=== PATIENT | male | born 1935 | race Caucasian/White ===

== ENCOUNTER 2018-12-04 16:56 | Inpatient (IN) ==
[2018-12-04] MEDS ORDERED: NON-FORMULARY MEDICATION 1 EACH EACH (Nitroglycerin [Nitrostat] 0.4 MG) SL PRN (19:00)
[2018-12-04] MEDS: Levofloxacin 500 MG/100 ML 500 MG/100 ML BAG IVPB SCH (19:07)
[2018-12-04] MEDS ORDERED: Furosemide 40 MG TABLET PO SCH (19:15)
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
[2018-12-04] MEDS: 0.9 % Sodium Chloride 1,000 ML IVC SCH ×2 (20:00→23:10)
[2018-12-04 20:03] LABS: Hematocrit 32.4 % (37.5-50.1); Hemoglobin 10.7 g/dL (12.9-16.9); Mean Corpuscular Hemoglobin 30.9 pg (28.0-33.3); Mean Corpuscular Volume 93.6 fL (83.0-100.0); Mean Platelet Volume 9.9 fL (9.4-12.4); Platelet Count 160 K/mcL (140-400); Red Blood Count 3.46 M/mcL (4.19-5.50)
[2018-12-04 20:20] LABS: BUN/Creatinine Ratio 16 (6-26); Blood Urea Nitrogen 21 mg/dL (8-23); Carbon Dioxide 27 mEq/L (23-29); Chloride 100 mEq/L (98-107); Glucose 97 mg/dL (70-105); Osmolality,Calculated 283 (280-300); Potassium 4.1 mEq/L (3.5-5.1); Sodium 135 mEq/L (136-145); eGFR For Non-African Americans 51 (> 60)
[2018-12-04] MEDS ORDERED: Isosorbide MONOnitrate (24 HR) 60 MG TAB.ER.24H PO SCH (21:00)
[2018-12-04] MEDS: Isosorbide MONOnitrate (24 HR) 60 MG TAB.ER.24H PO SCH (22:57)
[2018-12-04] MEDS: Ranolazine 500 MG TAB.ER.12H PO SCH (22:57)
[2018-12-04] MEDS: *HR* Metformin 500 MG TABLET PO SCH (22:57)
[2018-12-04] MEDS: Benzonatate 100 MG CAPSULE PO PRN (22:58)
[2018-12-05] MEDS: Nitroglycerin 0.4 MG TAB.SUBL SL PRN ×4 (02:35→17:36)
[2018-12-05] MEDS: *HR* HYDROcodone/Acet 5/325 mg TABLET PO PRN ×4 (02:35→22:12)
[2018-12-05 03:31] LABS: Basophils % 0.3 %; Eosinophils # 0.2 K/mcL (0.0-0.6); Eosinophils % 2.5 %; Hematocrit 30.3 % (37.5-50.1); Immature Granulocytes % 0.1 % (0-4); Lymphocytes # 1.3 K/mcL (0.6-4.6); Lymphocytes % 17.8 %; Mean Corpuscular Hemoglobin 30.6 pg (28.0-33.3); Mean Corpuscular Volume 92.7 fL (83.0-100.0); Mean Platelet Volume 9.7 fL (9.4-12.4); Neutrophils # 4.6 K/mcL (1.6-8.9); Platelet Count 164 K/mcL (140-400); Red Blood Count 3.27 M/mcL (4.19-5.50); Red Cell Distribution Width 12.9 % (11.5-14.5); Segmented Neutrophils % 65.3 %
[2018-12-05 03:47] LABS: BUN/Creatinine Ratio 16 (6-26); Blood Urea Nitrogen 20 mg/dL (8-23); Calcium 9.7 mg/dL (8.6-10.3); Carbon Dioxide 27 mEq/L (23-29); Chloride 100 mEq/L (98-107); Glucose 142 mg/dL (70-105); Osmolality,Calculated 281 (280-300); Potassium 3.8 mEq/L (3.5-5.1); Sodium 133 mEq/L (136-145); eGFR For Non-African Americans 54 (> 60)
[2018-12-05] MEDS: *HR* Enoxaparin 40 MG/0.4 ML SYRINGE SQ SCH (05:26)
[2018-12-05] MEDS: Benzonatate 100 MG CAPSULE PO PRN ×3 (08:38→22:12)
[2018-12-05] MEDS: Isosorbide MONOnitrate (24 HR) 60 MG TAB.ER.24H PO SCH ×2 (08:39→22:13)
[2018-12-05] MEDS: Ranolazine 500 MG TAB.ER.12H PO SCH ×2 (08:39→22:13)
[2018-12-05] MEDS: *HR* Metformin 500 MG TABLET PO SCH ×2 (08:39→15:22)
[2018-12-05] MEDS: Furosemide 40 MG TABLET PO SCH (08:40)
[2018-12-05] MEDS: Aspirin 81 MG TAB.CHEW PO SCH (08:40)
[2018-12-05] MEDS ORDERED: AZITHROMYCIN 250 MG PO SCH (09:00)
--- NOTE | 2018-12-05 09:27 | Electrocardiograph Report ---
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
--- NOTE | 2018-12-05 10:06 | Internal Med Progress Note ---
Date of Encounter: 12/05/18 Time of Encounter: 10:06 - Assessment and plan (1) Right lower lobe pneumonia Current Visit: Yes Status: Acute Assessment and plan: Patient has documented pneumonia, no fever or leukocytosis currently. It is giving him left-sided chest pain though. Having failed outpatient treatment with Zithromax and prednisone, he has been placed on Levaquin. No significant sputum. By auscultation he sounds better today. No significant hypoxia Qualifiers: Pneumonia type: due to unspecified organism Qualified Code(s): J18.1 - Lobar pneumonia, unspecified organism (2) Physical debility Current Visit: Yes Status: Acute Assessment and plan: Generalized weakness. He has mainly stayed in bed. (3) Acute kidney injury Current Visit: Yes Status: Acute Assessment and plan: Creatinine is better at 1.28 and will continue IV fluids. (4) Chest pain Current Visit: Yes Status: Acute Assessment and plan: Known history of CAD and angina, at this left-sided chest pain is very likely pulmonary/chest wall related. EKG is stable. Troponins negative. We will treat with symptomatic relief with analgesia. Nitroglycerin if needed to see if this is of help Qualifiers: Chest pain type: precordial pain Qualified Code(s): R07.2 - Precordial pain (5) Diabetes mellitus Current Visit: Yes Status: Chronic Assessment and plan: Generally under good control and we will continue to monitor. Qualifiers: Diabetes mellitus type: type 2 Diabetes mellitus group home insulin use: unspecified group home insulin use status Diabetes mellitus complication sta tus: with unspecified complications Qualified Code(s): E11.8 - Type 2 diabetes mellitus with unspecified complications (6) Coronary artery disease Current Visit: Yes Status: Chronic Assessment and plan: No obvious angina, on monitor and ruled out with troponin. No congestive heart failure. Qualifiers: Coronary Disease-Associated Artery/Lesion type: bypass graft [place] vs. transplanted heart: [place] heart Associated angina: with unspecified angina Qualified Code(s): I25.709 - Atherosclerosis of coronary artery bypass graft(s), unspecified, with unspecified angina pectoris (7) Hypertension Current Visit: Yes Status: Chronic Assessment and plan: Blood pressure under reasonable control Qualifiers: Hypertension type: essential hypertension Qualified Code(s): I10 - Essential (primary) hypertension (8) DVT prophylaxis Current Visit: Yes Status: Acute - Subjective Interval history: Patient did not get much rest last night. He coughed a lot of the time. He thinks he is a bit better, but not much today. Did not want the breakfast as it was cold. He denies a cardiac type chest pain, but he complains of left-sided chest pain particularly when he coughs. No severe get sputum production. No dyspnea. No abdominal pain. In the night last night he had chest pain and they got an EKG which did not show acute changes. Serial troponins were initiated and he was placed on quality assurance monitor body. At first they thought he was in atrial fibrillation, but EKGs and monitoring reveal first-degree heart block with occasional PAC - Constitutional Vitals: Temp Pulse Resp BP Pulse Ox 98.7 F 63 16 138/70 95 12/05/18 07:10 12/05/18 07:10 12/05/18 07:10 12/05/18 07:10 12/05/18 07:10 General appearance: Present: mild distress, A&O X 3, loss of weight, answers questions appropriately - Respiratory Respiratory exam: Present: decreased breath sounds (A few rare crackles heard, improved from yesterday. Crackles heard in the left anterior lobe area.) - Cardiovascular Cardiovascular exam: Present: RRR, +S1, +S2. Absent: systolic murmur - Extremities Exam Extremities exam: Absent: calf tenderness, pedal edema, tenderness Internal Medicine: Result - Labs CBC & Chem 7: 12/05/18 03:25 12/05/18 03:25 Labs: Short CBC 12/04/18 12/05/18 Range/Units 20:00 03:25 WBC 7.3 7.1 (4.3-11.1) K/mcL Hgb 10.7 L 10.0 L (12.9-16.9) g/dL Hct 32.4 L 30.3 L (37.5-50.1) % Plt Count 160 164 (140-400) K/mcL Neutrophils # 4.6 (1.6-8.9) K/mcL BMP 12/04/18 12/05/18 20:00 03:25 Sodium 135 L 133 L Potassium 4.1 3.8 Chloride 100 100 Carbon Dioxide 27 27 BUN 21 20 Creatinine 1.33 H 1.28 Glucose 97 142 H Calcium 10.0 9.7 Cardiac Enzymes 12/05/18 12/05/18 Range/Units 03:25 09:16 Troponin I 0.03 0.03 (< 0.04) ng/mL Have been reviewed. Creatinine slightly better. Sodium slightly worse. Troponin negative EKG reviewed as above. Consult Discharge Plan - Plan Referrals: Wesley Haas MD [Primary Care Provider] -
[2018-12-05] MEDS: 0.9 % Sodium Chloride 1,000 ML IVC SCH (12:15)
--- NOTE | 2018-12-05 17:38 | Electrocardiograph Report ---
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
[2018-12-05] MEDS ORDERED: Nitroglycerin 1 INCH/GM PACKET TP ONE (18:02)
[2018-12-05] MEDS: Levofloxacin 500 MG/100 ML 500 MG/100 ML BAG IVPB SCH (18:04)
[2018-12-05] MEDS: Promethazine Syrup 6.25 MG/5 ML PO PRN (23:50)
[2018-12-06] MEDS: 0.9 % Sodium Chloride 1,000 ML IVC SCH ×2 (02:46→16:11)
[2018-12-06] MEDS: Promethazine Syrup 6.25 MG/5 ML PO PRN ×4 (06:03→21:26)
[2018-12-06] MEDS: *HR* HYDROcodone/Acet 5/325 mg TABLET PO PRN ×4 (06:05→21:26)
[2018-12-06] MEDS: *HR* Enoxaparin 40 MG/0.4 ML SYRINGE SQ SCH (06:08)
[2018-12-06] MEDS: *HR* Metformin 500 MG TABLET PO SCH ×2 (08:56→17:49)
[2018-12-06] MEDS: Isosorbide MONOnitrate (24 HR) 60 MG TAB.ER.24H PO SCH ×2 (08:56→21:22)
[2018-12-06] MEDS: Aspirin 81 MG TAB.CHEW PO SCH (08:56)
[2018-12-06] MEDS: Ranolazine 500 MG TAB.ER.12H PO SCH ×2 (08:56→21:23)
[2018-12-06] MEDS: Furosemide 40 MG TABLET PO SCH (08:56)
[2018-12-06] MEDS: Benzonatate 100 MG CAPSULE PO PRN (09:11)
--- NOTE | 2018-12-06 09:54 | Internal Med Progress Note ---
Date of Encounter: 12/06/18 Time of Encounter: 09:54 - Assessment and plan (1) Right lower lobe pneumonia Current Visit: Yes Status: Acute Assessment and plan: He thinks his cough is better. No acute respiratory distress. He feels like his pneumonia is improving. No fevers or chills. CT scan scheduled for chest pain as below. He is still not eating well. He is not getting out of the bed much or increasing his ADLs because of weakness Qualifiers: Pneumonia type: due to unspecified organism Qualified Code(s): J18.1 - Lobar pneumonia, unspecified organism (2) Physical debility Current Visit: Yes Status: Acute Assessment and plan: He continues to be weak and not getting out of bed much because of his cough and his chest pain. He is also not eating well yet. I encouraged him to try to increase his activity and sit up in a chair. (3) Acute kidney injury Current Visit: Yes Status: Acute Assessment and plan: Follow-up labs ordered. Continue IV fluids as he has had poor oral intake. (4) Chest pain Current Visit: Yes Status: Acute Assessment and plan: Left-sided chest pain particularly over the left nipple. This appears to be related to his coughing. Does not sound cardiac. EKGs and troponins are reassuring. CT scan to be arranged to rule out other occult etiology besides pleuritic type pain related to pneumonia. Qualifiers: Chest pain type: precordial pain Qualified Code(s): R07.2 - Precordial pain (5) Diabetes mellitus Current Visit: Yes Status: Chronic Assessment and plan: Blood sugars are under relatively good control and followed well. 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 Qualifiers: Coronary Disease-Associated Artery/Lesion type: bypass graft [place] vs. transplanted heart: [place] heart Associated angina: with unspecified angina Qualified Code(s): I25.709 - Atherosclerosis of coronary artery bypass graft(s), unspecified, with unspecified angina pectoris (7) Hypertension Current Visit: Yes Status: Chronic Assessment and plan: Blood pressure minimally elevated today. We will continue to follow. Qualifiers: Hypertension type: essential hypertension Qualified Code(s): I10 - Essential (primary) hypertension (8) DVT prophylaxis Current Visit: Yes Status: Acute - Subjective Interval history: He thinks he rested a bit better last night, getting a couple hours of sleep. Yesterday he had intermittent episodes of left-sided chest pain, this seemed to occur when he coughs as a dull ache afterwards. He had a series of EKGs and troponins which were on changed. He states that if he rolls over in bed he has left-sided chest pain, when he coughs it occurs, etc. With his coughing better today his chest feels better. He denies any sputum production or hemoptysis. He still has poor by mouth intake, "I am just not hungry and I do not like the food." He has not had a bowel movement, but he had a good bowel movement the day prior to admission. He states he has a burning sensation in left lower quadrant of his abdomen. No rash or history of shingles. No urinary symptoms. - Constitutional Vitals: Temp Pulse Resp BP Pulse Ox 98 F 70 17 155/66 94 12/06/18 07:27 12/06/18 07:27 12/06/18 07:27 12/06/18 07:27 12/06/18 07:27 General appearance: Present: mild distress, A&O X 3, loss of weight, answers questions appropriately - Respiratory Additional comments: Crackles heard in both lower lobes. No respiratory distress. Anterior chest is clear. Chest wall over the left nipple was nontender. No rash present. - Cardiovascular Cardiovascular exam: Present: RRR, +S1, +S2 - GI/Abdominal GI/Abdominal exam: Present: soft, no peritoneal signs. Absent: tenderness - Extremities Exam Extremities exam: Absent: calf tenderness, pedal edema, tenderness - Skin Additional comments: No rash noted in dermatomal pattern over the left lower abdomen Internal Medicine: Result - Labs CBC & Chem 7: 12/05/18 03:25 12/05/18 03:25 Labs: Cardiac Enzymes 12/05/18 Range/Units 19:00 Troponin I < 0.03 (< 0.04) ng/mL Consult Discharge Plan - Plan Referrals: Wesley Haas MD [Primary Care Provider] -
[2018-12-06] MEDS: Nitroglycerin 0.4 MG TAB.SUBL SL PRN ×3 (12:43→14:03)
--- NOTE | 2018-12-06 14:10 | Electrocardiograph Report ---
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
--- NOTE | 2018-12-06 14:26 | Electrocardiograph Report ---
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
[2018-12-06] MEDS: Levofloxacin 500 MG/100 ML 500 MG/100 ML BAG IVPB SCH (17:49)
[2018-12-07] MEDS: *HR* HYDROcodone/Acet 5/325 mg TABLET PO PRN ×4 (05:19→20:46)
[2018-12-07] MEDS: *HR* Enoxaparin 40 MG/0.4 ML SYRINGE SQ SCH (05:20)
[2018-12-07 05:59] LABS: Basophils % 0.2 %; Eosinophils # 0.5 K/mcL (0.0-0.6); Eosinophils % 8.8 %; Hematocrit 28.9 % (37.5-50.1); Hemoglobin 9.5 g/dL (12.9-16.9); Immature Granulocytes % 0.3 % (0-4); Lymphocytes # 1.1 K/mcL (0.6-4.6); Lymphocytes % 17.8 %; Mean Corpuscular HGB Conc 32.9 g/dL (31.6-35.5); Mean Corpuscular Hemoglobin 30.9 pg (28.0-33.3); Mean Corpuscular Volume 94.1 fL (83.0-100.0); Mean Platelet Volume 9.8 fL (9.4-12.4); Monocytes # 0.7 K/mcL (0.0-1.3); Monocytes % 11.7 %; Neutrophils # 3.6 K/mcL (1.6-8.9); Platelet Count 167 K/mcL (140-400); Red Blood Count 3.07 M/mcL (4.19-5.50); Segmented Neutrophils % 61.2 %
[2018-12-07 06:24] LABS: BUN/Creatinine Ratio 11 (6-26); Blood Urea Nitrogen 11 mg/dL (8-23); Calcium 9.3 mg/dL (8.6-10.3); Carbon Dioxide 27 mEq/L (23-29); Chloride 105 mEq/L (98-107); Glucose 101 mg/dL (70-105); Osmolality,Calculated 284 (280-300); Potassium 4.1 mEq/L (3.5-5.1); Sodium 137 mEq/L (136-145); eGFR For Non-African Americans > 60 (> 60)
[2018-12-07] MEDS: 0.9 % Sodium Chloride 1,000 ML IVC SCH ×2 (06:32→21:18)
[2018-12-07] MEDS: Nitroglycerin 0.4 MG TAB.SUBL SL PRN ×3 (08:40→15:20)
[2018-12-07] MEDS: Furosemide 40 MG TABLET PO SCH (08:54)
[2018-12-07] MEDS: Aspirin 81 MG TAB.CHEW PO SCH (08:54)
[2018-12-07] MEDS: Isosorbide MONOnitrate (24 HR) 60 MG TAB.ER.24H PO SCH ×2 (08:54→20:45)
[2018-12-07] MEDS: Promethazine Syrup 6.25 MG/5 ML PO PRN ×3 (08:54→20:47)
[2018-12-07] MEDS: Ranolazine 500 MG TAB.ER.12H PO SCH ×2 (08:54→20:44)
[2018-12-07] MEDS: *HR* Metformin 500 MG TABLET PO SCH ×2 (08:55→17:45)
--- NOTE | 2018-12-07 11:24 | Internal Med Progress Note ---
Date of Encounter: 12/07/18 Time of Encounter: 11:23 - Assessment and plan (1) Right lower lobe pneumonia Current Visit: Yes Status: Acute Assessment and plan: Continues to have fatigue and cough from his pneumonia. Chest CT was done yesterday confirming his by lateral pneumonia and no unusual findings to Rafiq his left-sided chest pain when he coughs. We suspect chest wall strain from coughing. No fever or chills now. White blood cell count is normal. He is slowly getting better, continue same medication. Qualifiers: Pneumonia type: due to unspecified organism Qualified Code(s): J18.1 - Lobar pneumonia, unspecified organism (2) Physical debility Current Visit: Yes Status: Acute Assessment and plan: He is still weak and tired. Does not sleep well. Left-sided chest pain which appears to be related to when he has coughing or is positional. He thinks it is better because his cough is now diminishing. Does not sound cardiac (3) Acute kidney injury Current Visit: Yes Status: Resolved Assessment and plan: Acute kidney injury is resolved. It was likely prerenal and IV fluids will be continued until he eats and drinks well. (4) Chest pain Current Visit: Yes Status: Acute Assessment and plan: Chest pain in the left breast area appears to be related to his coughing. When he coughs he holds his chest and sometimes yells out in pain. It is short- lived. He states this feels different than his typical angina. Chest CT did not elicit any other diagnosis or finding other than his pneumonia as well as incidental right thyroid nodule Qualifiers: Chest pain type: precordial pain Qualified Code(s): R07.2 - Precordial pain (5) Diabetes mellitus Current Visit: Yes Status: Chronic Assessment and plan: Sugars are under good control. Qualifiers: Diabetes mellitus type: type 2 Diabetes mellitus prison insulin use: unspecified prison insulin use status Diabetes mellitus complication status: with unspecified complications Qualified Code(s): E11.8 - Type 2 diabetes mellitus with unspecified complications (6) Coronary artery disease Current Visit: Yes Status: Chronic Assessment and plan: Long-standing history coronary artery disease and most recent stent was performed in the past few months. He is having left-sided chest pain but appeared be related to his cough. He is not having typical angina type symptoms. We will continue to follow. Treat with analgesia as well as intermittently seeing if nitroglycerin is helpful. Serial enzymes have been negative and EKG has been stable. Qualifiers: Coronary Disease-Associated Artery/Lesion type: bypass graft [place] vs. 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 We will continue to follow. Qualifiers: Hypertension type: essential hypertension Qualified Code(s): I10 - Essential (primary) hypertension (8) DVT prophylaxis Current Visit: Yes Status: Acute - Subjective Interval history: Patient feels like he is getting better. He thinks he is about 20% better now. He slept 5 hours last night and quite pleased by that. His cough seems to be dissipating. There is no sputum production. No fevers or chills. He still gets the intermittent left sided chest pain that appears to be related to when he coughs or is positional when he lies on his right side. It feels better when he sits up or forward. He states this feels different than his typical chronic angina. He is still not eating well, no appetite and does not like the food. He has been sitting up in a chair briefly but really no major activity out of bed. - Constitutional Vitals: Temp Pulse Resp BP Pulse Ox 99.1 F 58 18 121/54 96 12/07/18 11:14 12/07/18 11:14 12/07/18 11:14 12/07/18 11:14 12/07/18 11:14 General appearance: Present: A&O X 3, no acute distress, loss of weight, answers questions appropriately - Respiratory Respiratory exam: Absent: respiratory distress Additional comments: Patient has crackles heard in the bilateral mid and lower lung grewal. Anterior grewal are clear but diminished. - Cardiovascular Cardiovascular exam: Present: RRR, +S1, +S2, systolic murmur (1 to 2/6 systolic murmur) - Extremities Exam Extremities exam: Absent: calf tenderness, pedal edema, tenderness Internal Medicine: Result - Labs CBC & Chem 7: 12/07/18 05:25 12/07/18 05:25 Labs: Short CBC 12/07/18 Range/Units 05:25 WBC 5.9 (4.3-11.1) K/mcL Hgb 9.5 L (12.9-16.9) g/dL Hct 28.9 L (37.5-50.1) % Plt Count 167 (140-400) K/mcL Neutrophils # 3.6 (1.6-8.9) K/mcL BMP 12/07/18 05:25 Sodium 137 Potassium 4.1 Chloride 105 Carbon Dioxide 27 BUN 11 Creatinine 0.97 Glucose 101 Calcium 9.3 Labs show hemoglobin slightly lower with hydration. Creatinine is now normal. Hyponatremia resolved. Potassium is normal - Impressions Impressions Chest CT 12/06/18 10:33 IMPRESSION: Multifocal areas of ground-glass opacity consolidation compatible with acute pneumonia. Follow-up CT recommended in 3-6 months to confirm resolution. RECOMMENDATIONS: Fleischner Society guidelines for follow-up and management of incidentally detected subsolid pulmonary nodules: Multiple subsolid nodules > than or equal to 6 mm - CT at 3-6 months. Subsequent management based on the most suspicious nodule(s). - Low risk patients include individuals with minimal or absent history of smoking and other known risk factors. - High risk patients include individuals with a history or smoking or known risk factors. Radiology 2017 http://pubs.rsna.org/doi/full/10.1148/radiol.[email or web address] D/ / 12/06/2018 16:12:26 Gianni Christiansen MD / nena Interpreting Provider: Gianni Christiansen MD Consult Discharge Plan - Plan Referrals: Wesley Haas MD [Primary Care Provider] -
[2018-12-07] MEDS: Levofloxacin 500 MG/100 ML 500 MG/100 ML BAG IVPB SCH (17:45)
[2018-12-08 04:31] LABS: Basophils % 0.4 %; Eosinophils # 0.5 K/mcL (0.0-0.6); Eosinophils % 8.4 %; Hematocrit 31.6 % (37.5-50.1); Hemoglobin 10.3 g/dL (12.9-16.9); Lymphocytes # 1.2 K/mcL (0.6-4.6); Lymphocytes % 21.7 %; Mean Corpuscular HGB Conc 32.6 g/dL (31.6-35.5); Mean Corpuscular Hemoglobin 30.6 pg (28.0-33.3); Mean Corpuscular Volume 93.8 fL (83.0-100.0); Mean Platelet Volume 9.8 fL (9.4-12.4); Monocytes # 0.7 K/mcL (0.0-1.3); Monocytes % 12.8 %; Neutrophils # 3.1 K/mcL (1.6-8.9); Platelet Count 165 K/mcL (140-400); Red Blood Count 3.37 M/mcL (4.19-5.50); Segmented Neutrophils % 56.7 %
[2018-12-08 04:48] LABS: BUN/Creatinine Ratio 9 (6-26); Blood Urea Nitrogen 9 mg/dL (8-23); Calcium 9.7 mg/dL (8.6-10.3); Carbon Dioxide 27 mEq/L (23-29); Chloride 106 mEq/L (98-107); Glucose 91 mg/dL (70-105); Osmolality,Calculated 282 (280-300); Potassium 4.7 mEq/L (3.5-5.1); Sodium 137 mEq/L (136-145); eGFR For Non-African Americans > 60 (> 60)
[2018-12-08] MEDS: *HR* Enoxaparin 40 MG/0.4 ML SYRINGE SQ SCH (05:25)
--- NOTE | 2018-12-08 07:18 | Internal Med Progress Note ---
Date of Encounter: 12/08/18 Time of Encounter: 07:16 - Assessment and plan (1) Bilateral pneumonia Status: Acute Assessment and plan: Bilateral pneumonia was verified on CT scan of the lungs. Clinically he has crackles in both lower bases and continued cough but improving. Continue the Levaquin. He said he feels 80-90% better today, so we will continue the current course. Qualifiers: Pneumonia type: due to unspecified organism Lung location: unspecified part of lung Qualified Code(s): J18.9 - Pneumonia, unspecified organism (2) Right lower lobe pneumonia Status: Inactive Assessment and plan: Patient was admitted with right lower lobe pneumonia, CT scan confirms bilateral pneumonia. Qualifiers: Pneumonia type: due to unspecified organism Qualified Code(s): J18.1 - Lobar pneumonia, unspecified organism (3) Chronic stable angina Status: Chronic Assessment and plan: Typically at home he uses nitroglycerin 2 or 3 times per day, commonly taking requiring 2 nitroglycerin to ease the pain. He thinks it is no worse now. He has continued to have angina even after his last cardiac catheterization. He wants no further cardiac catheterization. He does have documented small vessel disease not amenable to any more aggressive intervention. We will try to get his blood pressure under better control. He does have change in EKG with flipped T waves anteriorly, serial troponins are normal. He does not want any further cardiac catheterization or intervention. (4) Physical debility Status: Acute Assessment and plan: Patient is still weak. He is getting up to a chair but minimally. He feels that he is 80% better and I recommended that he up in a chair with his meals, increase activity in the room. We will encourage him to do so by also discontinuing his IV fluids that he feels this ties him down. We will evaluate for swing bed and PT and OT evaluation. (5) Acute kidney injury Status: Resolved Assessment and plan: Renal function is now normal. We will stop his IV fluids. (6) Chest pain Status: Chronic Assessment and plan: Continues to have chest pain, part of this is pain related to his coughing and is localized to left anterior chest area at the breast region. He holds his chest when he coughs and has residual pain afterwards. This is distinctly different than his chronic anginal pain. He thinks the chest pain is improved. He does think the hydrocodone is helpful and cough suppressants are not palpable also. We will continue the same. CT scan of chest reveals his bilateral pneumonia, but no other significant intrathoracic finding Qualifiers: Chest pain type: precordial pain Qualified Code(s): R07.2 - Precordial pain (7) Diabetes mellitus Status: Chronic Assessment and plan: Sugars are under good control. 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 He had heart catheterization and stent placement in September for ongoing daily angina. Afterwards she had a bit of improvement in the chest pain but continued with daily nitroglycerin use. He denies any exacerbation of his angina. He declines any consideration for another heart catheterization. He said he has had 9 heart catheterizations, 10 stent placements and does not want anymore. His heart catheterizations reveal small vessel disease not amenable to much intervention Qualifiers: Coronary Disease-Associated Artery/Lesion type: bypass graft [place] vs. 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 Now that his blood pressures going back up we are going to restart these. Qualifiers: Hypertension type: essential hypertension Qualified Code(s): I10 - Essential (primary) hypertension (10) DVT prophylaxis Status: Acute Assessment and plan: Patient continues on Lovenox and elastic stockings - Subjective Interval history: Yesterday patient told me that he was getting about 20% better. Today he thinks he is about 80-90% better. He is coughing less. He slept well last night. He is having less cough related pain as well as less angina pain in his estimation. He denies any dyspnea. No GI or symptoms. No swelling in his legs. He still does not have an appetite and has had poor oral intake. He has been a lot of time in bed, does not seem to be getting up into a chair or up in the room much except for toileting. - Constitutional Vitals: Temp Pulse Resp BP Pulse Ox 98.0 F 70 16 164/70 96 12/08/18 04:00 12/08/18 04:00 12/08/18 04:00 12/08/18 05:39 12/08/18 04:00 General appearance: Present: A&O X 3, no acute distress, loss of weight, answers questions appropriately - Respiratory Additional comments: Mild crackles heard in both bases. No wheezing. Otherwise diminished breath sounds throughout. No respiratory distress. No orthopnea. - Cardiovascular Cardiovascular exam: Present: RRR, +S1, +S2, systolic murmur (1 or 2/6 systolic murmur at the left sternal border) - GI/Abdominal GI/Abdominal exam: Present: soft. Absent: tenderness - Extremities Exam Extremities exam: Absent: calf tenderness, pedal edema, tenderness Internal Medicine: Result - Labs CBC & Chem 7: 12/08/18 04:21 12/08/18 04:21 Labs: Short CBC 12/08/18 Range/Units 04:21 WBC 5.4 (4.3-11.1) K/mcL Hgb 10.3 L (12.9-16.9) g/dL Hct 31.6 L (37.5-50.1) % Plt Count 165 (140-400) K/mcL Neutrophils # 3.1 (1.6-8.9) K/mcL BMP 12/08/18 04:21 Sodium 137 Potassium 4.7 Chloride 106 Carbon Dioxide 27 BUN 9 Creatinine 0.98 Glucose 91 Calcium 9.7 Cardiac Enzymes 12/07/18 12/08/18 Range/Units 21:41 04:21 Troponin I < 0.03 < 0.03 (< 0.04) ng/mL Hemoglobin has improved a bit. Renal function is now normal. Serial troponins are normal. - Prior EKG Data EKG comments: 12/08/18 07:42 EKGs done last evening due to chest pain: First EKG showed signs of limb lead misplacement. Subsequent EKGs have shown regular rate and rhythm with first- degree heart block. Flipped T waves now in the anterior leads are noted. patient monitor showed a few isolated PVCs Consult Discharge Plan - Plan Referrals: Wesley Haas MD [Primary Care Provider] -
[2018-12-08] MEDS ORDERED: Furosemide 40 MG TABLET PO SCH (08:00)
[2018-12-08] MEDS: Nitroglycerin 0.4 MG TAB.SUBL SL PRN (09:21)
[2018-12-08] MEDS: Ranolazine 500 MG TAB.ER.12H PO SCH (09:22)
[2018-12-08] MEDS: Isosorbide MONOnitrate (24 HR) 60 MG TAB.ER.24H PO SCH (09:22)
[2018-12-08] MEDS: Aspirin 81 MG TAB.CHEW PO SCH (09:22)
[2018-12-08] MEDS: *HR* Metformin 500 MG TABLET PO SCH (09:22)
[2018-12-08] MEDS: *HR* HYDROcodone/Acet 5/325 mg TABLET PO PRN (09:23)
[2018-12-08] MEDS: 0.9 % Sodium Chloride 1,000 ML IVC SCH (10:10)
[2018-12-08 11:29] VITALS: BP 139/65
[2018-12-08] MEDS: Promethazine Syrup 6.25 MG/5 ML PO PRN (12:51)
--- NOTE | 2018-12-08 13:39 | Electrocardiograph Report ---
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
--- NOTE | 2018-12-08 13:42 | Electrocardiograph Report ---
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
--- NOTE | 2018-12-08 20:06 | Discharge Summary ---
- NOTES TO OUTPATIENT PROVIDER Notes to Outpatient Provider: Patient was transferred from an acute bed with his pneumonia to a swing bed for ongoing antibiotics and detention and physical therapy to regain his ADLs. Date of Encounter: 12/08/18 Time of Encounter: 20:03 - Discharge Diagnosis (1) Bilateral pneumonia Priority: Primary Status: Acute Comments: Patient was admitted on Tuesday having failed outpatient treatment twice and was found to have right lower lobe pneumonia on chest x-ray and later bilateral pneumonia as found on chest CT. He is placed on Levaquin intravenously, oxygen when necessary, and medication for symptomatic relief. He has shown improvement but not complete clearing of his symptoms. He is still having weakness and will need further antibiotic infusion of Levaquin as well as PT and OT and he will be switched to a swing bed today. Qualifiers: Pneumonia type: due to unspecified organism Lung location: unspecified part of lung Qualified Code(s): J18.9 - Pneumonia, unspecified organism (2) Chronic stable angina Priority: Secondary Status: Chronic Comments: During the hospital stay he had left-sided chest pain, sometimes this was related to his coughing and was very pleuritic in localized stabbing pain in the chest. Sometimes it may been his chronic stable angina. Analgesia, cough suppressant, and also nitroglycerin as needed was given. Serial troponins have been negative. His EKG was stable until past 24 hours when he has had flipped T waves in the anterior leads. He has known history of CAD and multiple cardiac catheterizations and had one in September and a stent placed. He has small vessel disease now. Does not want any further cardiac catheterizations. He confirms that he is anginal chest pains or no worse than he has at home in which she uses multiple doses of nitroglycerin daily in addition to his Imdur twice a day and his hypertensive medications. (3) Physical debility Priority: Secondary Status: Acute Comments: Because of the pneumonia he has lost weight, poor appetite, generalized weakness. He is not able to take care of himself at home independently. He will be transferred to a swing bed for PT and OT and ongoing detention care. (4) Chest pain Priority: Secondary Status: Chronic Comments: Discussed as above with angina. His acute chest pain is very much chest wall and occurs when he coughs. CT scan failed to show any unexpected findings than his pneumonia bilaterally. Qualifiers: Chest pain type: precordial pain Qualified Code(s): R07.2 - Precordial pain (5) Diabetes mellitus Priority: Secondary Status: Chronic Comments: Diabetes has been under good control. 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 He does not take DARIUS or ARB and his diuretic was decreased to twice a day per cardiology because of low blood pressures. During this hospital stay his pressure started edge upward and today losartan was started and Lasix increased to twice a day. Qualifiers: Hypertension type: essential hypertension Qualified Code(s): I10 - Essentia l (primary) hypertension (8) DVT prophylaxis Priority: Secondary Status: Acute Comments: He received Lovenox through his hospital stay and on to the swing bed as well. Hospital course: Mr. Nance is a 83 year old male admitted with pneumonia and will be transferred to a swing bed for ongoing pneumonia care as well as PT and OT for deconditioning. - Time Spent with Patient Total time spent providing and/or coordinating discharge services: - Discharge Medications Home Medications: Aspirin 81 mg PO DAILY 01/27/16 [History] Carvedilol 25 mg PO BID 01/27/16 [History] Clopidogrel Bisulfate [Plavix] 75 mg PO DAILY 01/27/16 [History] Furosemide [Lasix] 40 mg PO DAILY 01/27/16 [History] Gemfibrozil [Lopid] 600 mg PO BID 01/27/16 [History] Isosorbide MONOnitrate (24 HR) [Imdur] 90 mg PO BID 01/27/16 [History] Metformin HCl [Glucophage] 500 mg PO BID 01/27/16 [History] Nitroglycerin [Nitrostat] 0.4 mg SL PRN PRN 01/27/16 [History] Potassium Chloride [Klor-Con] 20 meq PO BID 01/27/16 [History] Simvastatin [Zocor] 20 mg PO HS 01/27/16 [History] Acetaminophen [Tylenol] 1,500 mg PO HS PRN 07/13/16 [History] [place] 5-325 Tablet 1 - 2 tab PO Q4-6H PRN 12/04/18 [History] Ranexa 500 mg PO BID 12/04/18 [History] Allergies/Adverse Reactions: Allergy/AdvReac Type Severity Reaction Status Date / Time acetaminophen [From Percocet] AdvReac Itching Verified 12/06/18 03:11 ibuprofen AdvReac Blister Verified 12/05/18 04:22 oxycodone [From Percocet] AdvReac Itching Verified 12/05/18 04:22 Date of admission: 12/04/18 19:30 Primary care physician: Wesley Haas MD Consults: 12/04/18 18:06 Consult to Mandrel Maker [CONS] Routine Reason for SW Consult: eval 12/08/18 07:57 Consult to Mandrel Maker [CONS] Routine Reason for SW Consult: Please evaluate for medical swing for ongoing IV antibiotics and telemetry monitoring. PT and OT evaluation for increasing ADLs as he improves from his pneumonia Discharging clinician: Wesley Haas Anticipated date of discharge: 12/08/18 - Constitutional Vitals: Temp Pulse Resp BP Pulse Ox 98.3 F 72 16 139/65 95 12/08/18 11:28 12/08/18 11:28 12/08/18 11:28 12/08/18 11:28 12/08/18 11:28 General appearance: Present: A&O X 3, no acute distress, loss of weight, answers questions appropriately - Respiratory Additional comments: Few rare crackles in the bases. No wheezing no respiratory distress no orthopnea - Cardiovascular Cardiovascular exam: Present: RRR, +S1, +S2, systolic murmur (2/6 systolic murmur) - GI/Abdominal GI/Abdominal exam: Present: soft. Absent: tenderness - Extremities Exam Extremities exam: Absent: calf tenderness, pedal edema, tenderness - Patient Status Disposition: Transfer Hospital Swing Bed Condition: Fair Functional capacity at discharge: uses cane/walker Overall status at discharge: patient is not back to baseline - Discharge Instructions Follow Up With: Wesley Haas MD [Primary Care Provider] -
== END 2018-12-08 13:19 | disposition other institution (70) | DRG 194 ==
LOC: INPGRE
PROVIDERS: ADMIT Family Medicine; ATTEND Family Medicine

== ENCOUNTER 2018-12-08 13:18 | Inpatient (IN) ==
[2018-12-08] MEDS ORDERED: Benzonatate 100 MG CAPSULE PO PRN (13:27)
[2018-12-08] MEDS: *HR* HYDROcodone/Acet 5/325 mg TABLET PO PRN ×2 (16:12→21:16)
[2018-12-08] MEDS: Furosemide 40 MG TABLET PO SCH (17:39)
[2018-12-08] MEDS: *HR* Metformin 500 MG TABLET PO SCH (17:39)
[2018-12-08] MEDS: Levofloxacin 500 MG/100 ML 500 MG/100 ML BAG IVPB SCH (17:40)
[2018-12-08] MEDS: Promethazine Syrup 6.25 MG/5 ML PO PRN (17:51)
--- NOTE | 2018-12-08 19:53 | Event Note ---
Date of Encounter: 12/08/18 Time of Encounter: 19:50 Patient was transferred from acute bed to a swing bed for ongoing IV antibiotics, evaluation for PT and OT for deconditioning and ongoing nursing home care. I reevaluated the patient tonight. He said he is markedly improved. He said he walked from room 114 to the end of the hallway and back without having angina or dyspnea. He said his coughing is much better and therefore his left sided sharp stabbing chest pain is better. No significant amount of sputum production. No fevers or chills. He is still not eating well. He denies any worsening or change in his chronic angina. His blood pressure is improved with starting ARB and increasing Lasix back to twice a day. His lungs showed just rare crackles in the bases posteriorly. Still has occasional cough and severe stabbing left-sided chest pain during those episodes.
[2018-12-08] MEDS: Ranolazine 500 MG TAB.ER.12H PO SCH (21:15)
[2018-12-08] MEDS: Isosorbide MONOnitrate (24 HR) 60 MG TAB.ER.24H PO SCH (21:16)
[2018-12-09] MEDS: *HR* Enoxaparin 40 MG/0.4 ML SYRINGE SQ SCH (05:36)
[2018-12-09 06:00] LABS: Basophils % 0.5 %; Eosinophils # 0.4 K/mcL (0.0-0.6); Eosinophils % 7.6 %; Hematocrit 30.5 % (37.5-50.1); Hemoglobin 9.9 g/dL (12.9-16.9); Immature Granulocytes % 0.4 % (0-4); Lymphocytes # 1.3 K/mcL (0.6-4.6); Lymphocytes % 22.9 %; Mean Corpuscular HGB Conc 32.5 g/dL (31.6-35.5); Mean Corpuscular Hemoglobin 30.4 pg (28.0-33.3); Mean Corpuscular Volume 93.6 fL (83.0-100.0); Monocytes # 0.7 K/mcL (0.0-1.3); Monocytes % 12.8 %; Neutrophils # 3.1 K/mcL (1.6-8.9); Platelet Count 185 K/mcL (140-400); Red Blood Count 3.26 M/mcL (4.19-5.50); Red Cell Distribution Width 12.8 % (11.5-14.5); Segmented Neutrophils % 55.8 %
[2018-12-09 06:13] LABS: BUN/Creatinine Ratio 11 (6-26); Blood Urea Nitrogen 12 mg/dL (8-23); Calcium 9.8 mg/dL (8.6-10.3); Carbon Dioxide 28 mEq/L (23-29); Chloride 104 mEq/L (98-107); Glucose 119 mg/dL (70-105); Osmolality,Calculated 287 (280-300); Potassium 4.3 mEq/L (3.5-5.1); Sodium 138 mEq/L (136-145); eGFR For Non-African Americans > 60 (> 60)
[2018-12-09] MEDS: Furosemide 40 MG TABLET PO SCH ×2 (08:40→17:58)
[2018-12-09] MEDS: Aspirin 81 MG TAB.CHEW PO SCH (08:40)
[2018-12-09] MEDS: *HR* Metformin 500 MG TABLET PO SCH ×2 (08:40→17:58)
[2018-12-09] MEDS: Isosorbide MONOnitrate (24 HR) 60 MG TAB.ER.24H PO SCH ×2 (08:40→20:47)
[2018-12-09] MEDS: *HR* HYDROcodone/Acet 5/325 mg TABLET PO PRN ×2 (08:40→17:58)
[2018-12-09] MEDS: Ranolazine 500 MG TAB.ER.12H PO SCH ×2 (08:41→20:46)
[2018-12-09] MEDS: Nitroglycerin 0.4 MG TAB.SUBL SL PRN (09:32)
--- NOTE | 2018-12-09 13:14 | Internal Med Progress Note ---
Date of Encounter: 12/09/18 Time of Encounter: 13:12 - Assessment and plan (1) Bilateral pneumonia Current Visit: No Status: Acute Assessment and plan: He is getting Levaquin he is afebrile. We will continue Qualifiers: Pneumonia type: due to unspecified organism Lung location: lower lobe of lung Qualified Code(s): J18.1 - Lobar pneumonia, unspecified organism (2) Diabetes mellitus Current Visit: No Status: Chronic Assessment and plan: Will continue the metformin. Accu-Cheks Qualifiers: Diabetes mellitus type: type 2 Diabetes mellitus chcf insulin use: without chcf use Diabetes mellitus complication status: without complication Qualified Code(s): E11.9 - Type 2 diabetes mellitus without complications (3) Hypertension Current Visit: No Status: Chronic Assessment and plan: It was high I increased the dose of the cervical spine was here that does not help bring it down. Qualifiers: Hypertension type: essential hypertension Qualified Code(s): I10 - Essential (primary) hypertension (4) Coronary artery disease Current Visit: No Status: Chronic Qualifiers: Coronary Disease-Associated Artery/Lesion type: [place] artery [place] vs. transplanted heart: [place] heart Associated angina: with stable angina Qualified Code(s): I25.118 - Atherosclerotic heart disease of [place] coronary artery with other forms of angina pectoris (5) DVT prophylaxis Current Visit: No Status: Acute Assessment and plan: Lovenox (6) Chronic kidney disease (CKD) Current Visit: No Status: Chronic Assessment and plan: Has been stable Qualifiers: Chronic kidney disease stage: unspecified stage Qualified Code(s): N18.9 - Chronic kidney disease, unspecified (7) Chest pain Current Visit: No Status: Chronic Assessment and plan: He had another episode of this this morning he says not a heart attack does not feel it when he had his heart attack he does not want any further catheterizations is ready had 10 stents. He has had this intense he wishes it would stop discussed other additional treatment methods he is already on indoor Ranexa discussed maybe adding a Nitropatch or trying some prednisone to see if that does not help with inflammation we decided to go ahead and try some oral prednisone to see if that does not help with some of his pain. Qualifiers: Chest pain type: intercostal pain Qualified Code(s): R07.82 - Intercostal pain (8) Physical debility Current Visit: No Status: Acute Assessment and plan: He is here for PT OT. (9) Chronic stable angina Current Visit: No Status: Chronic Assessment and plan: He continues to have this he says it is not his heart with this new pain. Feels different. - Subjective Interval history: He had another episode of the chest pain this morning it just hit him all at once. he does get better when he leans forward and twisted little bit. Sometimes it will make him diaphoretic sometimes it makes him short of breath he is unsure what brings it on on and it is very intense when it is there. He has not had any nausea vomiting diarrhea constipation he does not have any belly pain he is eating okay bowels and bladder are working okay. His blood pressure was given a little bit high we did raise his losartan the losartan is new this hospital admission. - Constitutional Vitals: Temp Pulse Resp BP Pulse Ox 98.1 F 63 16 121/62 93 12/09/18 10:53 12/09/18 10:53 12/09/18 10:53 12/09/18 10:53 12/09/18 10:53 General appearance: Present: A&O X 3, answers questions appropriately - Head Head exam: Present: atraumatic, normocephalic - Neck Neck exam general surgery: Present: normal inspection, trachea midline - Respiratory Respiratory exam: Present: rhonchi (Bilateral basis) - Cardiovascular Cardiovascular exam: Present: RRR, +S1, +S2 - GI/Abdominal GI/Abdominal exam: Present: normal bowel sounds, soft, no peritoneal signs. Absent: guarding, tenderness - Extremities Exam Extremities exam: Present: warm. Absent: pedal edema - Skin Skin exam: Present: dry, warm Internal Medicine: Result - Labs CBC & Chem 7: 12/09/18 05:35 12/09/18 05:35 Labs: Short CBC 12/09/18 Range/Units 05:35 WBC 5.6 (4.3-11.1) K/mcL Hgb 9.9 L (12.9-16.9) g/dL Hct 30.5 L (37.5-50.1) % Plt Count 185 (140-400) K/mcL Neutrophils # 3.1 (1.6-8.9) K/mcL BMP 12/09/18 05:35 Sodium 138 Potassium 4.3 Chloride 104 Carbon Dioxide 28 BUN 12 Creatinine 1.06 Glucose 119 H Calcium 9.8 Consult Discharge Plan - Plan Referrals: Wesley Haas MD [Primary Care Provider] -
[2018-12-09] MEDS: predniSONE 20 MG TABLET PO SCH (17:58)
[2018-12-09] MEDS: Levofloxacin 500 MG/100 ML 500 MG/100 ML BAG IVPB SCH (17:59)
[2018-12-09] MEDS: Promethazine Syrup 6.25 MG/5 ML PO PRN (20:47)
[2018-12-10] MEDS: *HR* HYDROcodone/Acet 5/325 mg TABLET PO PRN ×2 (06:26→17:21)
[2018-12-10] MEDS: *HR* Enoxaparin 40 MG/0.4 ML SYRINGE SQ SCH (06:26)
[2018-12-10] MEDS: Isosorbide MONOnitrate (24 HR) 60 MG TAB.ER.24H PO SCH (08:54)
[2018-12-10] MEDS: Aspirin 81 MG TAB.CHEW PO SCH (08:54)
[2018-12-10] MEDS: *HR* Metformin 500 MG TABLET PO SCH ×2 (08:54→17:22)
[2018-12-10] MEDS: Furosemide 40 MG TABLET PO SCH ×2 (08:54→17:22)
[2018-12-10] MEDS: predniSONE 20 MG TABLET PO SCH (08:54)
[2018-12-10] MEDS: Ranolazine 500 MG TAB.ER.12H PO SCH ×2 (08:55→20:29)
--- NOTE | 2018-12-10 10:02 | Internal Med Progress Note ---
Date of Encounter: 12/10/18 Time of Encounter: 09:59 - Assessment and plan (1) Bilateral pneumonia Current Visit: No Status: Acute Assessment and plan: He is getting Levaquin he is afebrile. We will continue Qualifiers: Pneumonia type: due to unspecified organism Lung location: lower lobe of lung Qualified Code(s): J18.1 - Lobar pneumonia, unspecified organism (2) Diabetes mellitus Current Visit: No Status: Chronic Assessment and plan: Will continue the metformin. Accu-Cheks Qualifiers: Diabetes mellitus type: type 2 Diabetes mellitus senior care insulin use: without terminal clerk use Diabetes mellitus complication status: without complication Qualified Code(s): E11.9 - Type 2 diabetes mellitus without complications (3) Hypertension Current Visit: No Status: Chronic Assessment and plan: the losartan was increased yesterday to help lower it Qualifiers: Hypertension type: essential hypertension Qualified Code(s): I10 - Essenti al (primary) hypertension (4) Coronary artery disease Current Visit: No Status: Chronic Assessment and plan: states the pain i s not his cardiac pain Qualifiers: Coronary Disease-Associated Artery/Lesion type: [place] artery [place] vs. transplanted heart: [place] heart Associated angina: with stable angina Qualified Code(s): I25.118 - Atherosclerotic heart disease of [place] coronary artery with other forms of angina pectoris (5) DVT prophylaxis Current Visit: No Status: Acute Assessment and plan: Lovenox (6) Chronic kidney disease (CKD) Current Visit: No Status: Chronic Assessment and plan: Has been stable Qualifiers: Chronic kidney disease stage: unspecified stage Qualified Code(s): N18.9 - Chronic kidney disease, unspecified (7) Chest pain Current Visit: No Status: Chronic Assessment and plan: added prednisone to try to help with inflamation and pain Qualifiers: Chest pain type: intercostal pain Qualified Code(s): R07.82 - Intercostal pain (8) Physical debility Current Visit: No Status: Acute Assessment and plan: He is here for PT OT. (9) Chronic stable angina Current Visit: No Status: Chronic Assessment and plan: He continues to have this he says it is not his heart with this new pain. Feels different. - Subjective Interval history: his chest pain is better today. no sob, still with cough mild clear sputum, no n/v, no abd pain, bowels and bladder ok - Constitutional Vitals: Temp Pulse Resp BP Pulse Ox 98.5 F 65 17 130/64 94 12/10/18 07:31 12/10/18 07:31 12/10/18 07:31 12/10/18 07:31 12/10/18 07:31 General appearance: Present: A&O X 3, answers questions appropriately - Head Head exam: Present: atraumatic, normocephalic - Neck Neck exam general surgery: Present: supple, trachea midline - Respiratory Respiratory exam: Present: rhonchi (left base) - Cardiovascular Cardiovascular exam: Present: RRR - GI/Abdominal GI/Abdominal exam: Present: normal bowel sounds, no peritoneal signs. Absent: distended, mass, tenderness - Extremities Exam Extremities exam: Present: warm. Absent: pedal edema - Skin Skin exam: Present: dry, warm. Absent: rash Internal Medicine: Result - Labs CBC & Chem 7: 12/09/18 05:35 12/09/18 05:35 Consult Discharge Plan - Plan Referrals: Wesley Haas MD [Primary Care Provider] -
--- NOTE | 2018-12-10 15:50 | Electrocardiograph Report ---
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
[2018-12-10] MEDS: Levofloxacin 500 MG/100 ML 500 MG/100 ML BAG IVPB SCH (17:22)
[2018-12-10] MEDS: Nitroglycerin 0.4 MG TAB.SUBL SL PRN (17:37)
[2018-12-10] MEDS: Isosorbide MONOnitrate (24 HR) 30 MG TAB.ER.24H PO SCH (20:42)
[2018-12-11] MEDS: *HR* Enoxaparin 40 MG/0.4 ML SYRINGE SQ SCH (06:34)
--- NOTE | 2018-12-11 07:01 | Internal Med Progress Note ---
Date of Encounter: 12/11/18 Time of Encounter: 07:01 - Assessment and plan (1) Physical debility Current Visit: Yes Status: Acute Assessment and plan: Because of his bilateral pneumonia and prolonged hospital stay, he is getting PT and OT. He says he has has shown improvement and feels safe going home the next 24 hours. We will see how he does with therapy today. He does have 13 stairs to the basement for his laundry, and I told him he should have someone else do the laundry or move it to the first floor. He has to use one or 2 canes for ambulation and this is too dangerous for him to be on the steps carrying laundry (2) Bilateral pneumonia Current Visit: Yes Status: Acute Assessment and plan: Clinically and symptomatically improved with his bilateral pneumonia. We will plan discharge tomorrow if stable with ADLs. Continue antibiotics for now. Qualifiers: Pneumonia type: due to unspecified organism Lung location: lower lobe of lung Qualified Code(s): J18.1 - Lobar pneumonia, unspecified organism (3) Diabetes mellitus Current Visit: No Status: Chronic Assessment and plan: Sugars are under relatively good control. Stay on the same medication. 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 Continue to monitor. Qualifiers: Hypertension type: essential hypertension Qualified Code(s): I10 - Essential (primary) hypertension (5) Coronary artery disease Current Visit: No Status: Chronic Assessment and plan: Chronic history of CAD, recent stent placement. Angina stable. Feels improved. Qualifiers: Coronary Disease-Associated Artery/Lesion type: [place] artery [place] vs. transplanted heart: [place] heart Associated angina: with stable angina Qualified Code(s): I25.118 - Atherosclerotic heart disease of [place] coronary artery with other forms of angina pectoris (6) Chronic kidney disease (CKD) Current Visit: No Status: Chronic Qualifiers: Chronic kidney disease stage: unspecified stage Qualified Code(s): N18.9 - Chronic kidney disease, unspecified (7) Chest pain Current Visit: Yes Status: Acute Assessment and plan: His acute chest pains has improved since his coughing is better. He does have known stable angina and takes nitroglycerin at home daily. Qualifiers: Chest pain type: intercostal pain Qualified Code(s): R07.82 - Intercostal pain (8) Acute kidney injury Current Visit: No Status: Resolved (9) DVT prophylaxis Current Visit: Yes Status: Acute Assessment and plan: Continue with Lovenox. - Subjective Interval history: Patient states that he feels much better. Since Tuesday night his coughing is improved and a lot less pain. He thinks he is ready to go home soon. No significant sputum production. Minimal cough. No angina. No GI or symptoms. - Constitutional Vitals: Temp Pulse Resp BP Pulse Ox 98.1 F 75 14 137/58 95 12/10/18 23:59 12/10/18 23:59 12/10/18 23:59 12/10/18 23:59 12/10/18 23:59 General appearance: Present: A&O X 3, no acute distress, answers questions appropriately - Respiratory Respiratory exam: Present: decreased breath sounds (Decreased breath sounds throughout, no localized crackles or rales or wheezing now. No cough currently) - Cardiovascular Cardiovascular exam: Present: RRR, +S1, +S2 - GI/Abdominal GI/Abdominal exam: Present: soft. Absent: tenderness - Extremities Exam Extremities exam: Absent: calf tenderness, pedal edema, tenderness Internal Medicine: Result - Labs CBC & Chem 7: 12/09/18 05:35 12/09/18 05:35 Labs: Sugars have been reviewed. Diabetes under fair control. Consult Discharge Plan - Plan Referrals: Wesley Haas MD [Primary Care Provider] -
[2018-12-11] MEDS: *HR* Metformin 500 MG TABLET PO SCH ×2 (08:25→16:57)
[2018-12-11] MEDS: predniSONE 20 MG TABLET PO SCH (08:25)
[2018-12-11] MEDS: Aspirin 81 MG TAB.CHEW PO SCH (08:25)
[2018-12-11] MEDS: Furosemide 40 MG TABLET PO SCH ×2 (08:25→16:57)
[2018-12-11] MEDS: Isosorbide MONOnitrate (24 HR) 30 MG TAB.ER.24H PO SCH ×2 (08:25→20:18)
[2018-12-11] MEDS: Ranolazine 500 MG TAB.ER.12H PO SCH ×2 (08:26→20:19)
[2018-12-11] MEDS: levoFLOXacin 500 MG TABLET PO SCH (16:57)
[2018-12-11] MEDS: *HR* HYDROcodone/Acet 5/325 mg TABLET PO PRN (23:01)
[2018-12-12] MEDS: *HR* Enoxaparin 40 MG/0.4 ML SYRINGE SQ SCH (04:12)
--- NOTE | 2018-12-12 07:57 | Discharge Summary ---
- NOTES TO OUTPATIENT PROVIDER Notes to Outpatient Provider: #1. Due to elevated blood pressure and chest pain, losartan was added and Lasix increased back to twice a day during this hospital stay Date of Encounter: 12/12/18 Time of Encounter: 07:52 - Discharge Diagnosis (1) Physical debility Priority: Primary Status: Acute Comments: Patient was admitted to a swing bed having been in the process of treatment for pneumonia and angina. He had weakness, deconditioning and underwent PT and OT evaluation. He was in the swing bed for for 5 days. He is now able to ambulate in the hallway without dyspnea. Showered, dressing self, maintaining ADLs well enough to be discharged to home. He has not had any change in his chronic anginal pattern, actually better now in a few days ago. He will be discharged to home today in follow-up in the office. (2) Bilateral pneumonia Priority: Secondary Status: Acute Comments: Patient was admitted 8 days ago with bilateral pneumonia. He has been on Levaquin and has done well. For a while his biggest complaint was severe left- sided chest pain when he coughed. His saturations are now normal, minimal cough and sputum is clear phlegm, marked improvement in the left-sided chest pain when he coughs. He should not need any further antibiotic at discharge. Qualifiers: Pneumonia type: due to unspecified organism Lung location: lower lobe of lung Qualified Code(s): J18.1 - Lobar pneumonia, unspecified organism (3) Diabetes mellitus Priority: Secondary Status: Chronic Comments: His sugars are been under relatively good control except mildly elevated when prednisone was started in the last few days due to chest pain. His last glycohemoglobin was 5.9% in September. No change in his medication Qualifiers: Diabetes mellitus type: type 2 Diabetes mellitus mcc insulin use: without mcc use Diabetes mellitus complication status: without complication Qualified Code(s): E11.9 - Type 2 diabetes mellitus without complications (4) Hypertension Priority: Secondary Status: Chronic Comments: Chronic history of hypertension. His blood pressures were elevated in the 140s to 160s. Prior to this his tar pot man avoided use of [place] or ARB and decreased his Lasix from twice a day to daily because of his pressures being too low. Los deven was added and then increase to 50 mg. His Lasix was increased back to twice a day. Pressures are still in the 140s to 150s and will follow as an outpatient. Qualifiers: Hypertension type: essential hypertension Qualified Code(s): I10 - Essential (primary) hypertension (5) Coronary artery disease Priority: Secondary Status: Chronic Comments: Known history coronary artery disease and 9 heart catheterizations and 10 stent placements. He had cath and stent placed in September. He does not want any further more aggressive intervention. He did have what sounds like his usual stable angina which he takes nitroglycerin daily sublingually at home. That is all quieted down now. He was hard to discern angina versus chest wall pain from coughing. With increasing his therapy he has not had any change in his chronic angina and is actually doing better now. He had numerous troponins done which were unremarkable/reassuring. Numerous EKGs were done which were stable except for the past couple had flipped T waves in the anterior leads. He did not want further intervention. Qualifiers: Coronary Disease-Associated Artery/Lesion type: [place] artery [place] vs. transplanted heart: [place] heart Associated angina: with stable angina Qualified Code(s): I25.118 - Atherosclerotic heart disease of [place] coronary artery with other forms of angina pectoris (6) Chronic kidney disease (CKD) Priority: Secondary Status: Chronic Comments: On admission she had acute kidney injury and now renal function is back to baseline. His creatinine is now back to normal at 1.06 Qualifiers: Chronic kidney disease stage: unspecified stage Qualified Code(s): N18.9 - Chronic kidney disease, unspecified (7) Chest pain Priority: Secondary Status: Acute Comments: He had chest wall pain related to his cough as above. He also had angina pains. That is now basically resolved. Prednisone was used for the past few days which may been helpful as an anti-inflammatory. He does not think he needs this at home. He does have hydrocodone if he does have muscular skeletal pain. NSAIDs are a relative contraindication for him with his heart disease Qualifiers: Chest pain type: intercostal pain Qualified Code(s): R07.82 - Intercostal pain (8) Acute kidney injury Priority: Secondary Status: Resolved Comments: He had acute kidney injury resolved with IV fluids. Now renal function is normal. (9) DVT prophylaxis Priority: Secondary Status: Acute Comments: Hospital as he has been on Lovenox for DVT prophylaxis. No signs of DVT at time of discharge. Hospital course: Mr. Nance is a 83 year old male with known history of CAD, diabetes, peripheral neuropathy was admitted initially to an inpatient bed with pneumonia. After a few days and showing improvement he was then transferred to a swing bed for ongoing intravenous antibiotics, pulmonary care, but also to initiate PT and OT for deconditioning and weakness. Medically he is now stable, and is participating in physical activity sufficient enough to be discharged home today. Please see the diagnoses above. - Time Spent with Patient Total time spent providing and/or coordinating discharge services: - Discharge Medications Prescriptions: Losartan [Cozaar] 50 mg PO DAILY #30 tablet Home Medications: Aspirin 81 mg PO DAILY 01/27/16 [History] Carvedilol 25 mg PO BID 01/27/16 [History] Clopidogrel Bisulfate [Plavix] 75 mg PO DAILY 01/27/16 [History] Gemfibrozil [Lopid] 600 mg PO BID 01/27/16 [History] Isosorbide MONOnitrate (24 HR) [Imdur] 90 mg PO BID 01/27/16 [History] Metformin HCl [Glucophage] 500 mg PO BID 01/27/16 [History] Nitroglycerin [Nitrostat] 0.4 mg SL PRN PRN 01/27/16 [History] Potassium Chloride [Klor-Con] 20 meq PO BID 01/27/16 [History] Simvastatin [Zocor] 20 mg PO HS 01/27/16 [History] Acetaminophen [Tylenol] 1,500 mg PO HS PRN 07/13/16 [History] [place] 5-325 Tablet 1 - 2 tab PO Q4-6H PRN 12/04/18 [History] Ranexa 500 mg PO BID 12/04/18 [History] Furosemide [Lasix] 40 mg PO BID #0 12/12/18 [Rx] Losartan [Cozaar] 50 mg PO DAILY #30 tablet 12/12/18 [Rx] Allergies/Adverse Reactions: Allergy/AdvReac Type Severity Reaction Status Date / Time acetaminophen [From Percocet] AdvReac Itching Verified 12/06/18 03:11 ibuprofen AdvReac Blister Verified 12/05/18 04:22 oxycodone [From Percocet] AdvReac Itching Verified 12/05/18 04:22 Date of admission: 12/08/18 13:32 Primary care physician: Wesley Haas MD Consults: 12/08/18 13:23 Consult to Occupational Therapy [CONS] Routine Comment: Evaluate, develop and implement POC Reason for Consult: deconditioning Does patient have active BEDREST order?: No Is patient medically & hemodynamically stable?: Yes Consult to Physical Therapy [CONS] Routine Comment: Evaluate, develop and implement POC Reason for Consult: deconditioning Does patient have active BEDREST order?: No Is patient medically & hemodynamically stable?: Yes 12/08/18 13:55 Consult to Day Spa Manager [CONS] Routine Reason for SW Consult: discharge planning Discharging clinician: Wesley Haas Anticipated date of discharge: 12/12/18 - Constitutional Vitals: Temp Pulse Resp BP Pulse Ox 97.2 F L 64 14 154/64 96 12/12/18 04:00 12/12/18 04:00 12/12/18 04:00 12/12/18 04:00 12/12/18 04:00 General appearance: Present: A&O X 3, no acute distress, answers questions appropriately - Respiratory Additional comments: Rare dry crackles at the bases. Diminished breath sounds throughout. No respiratory distress. - Cardiovascular Cardiovascular exam: Present: RRR, +S1, +S2 - GI/Abdominal GI/Abdominal exam: Present: soft. Absent: tenderness - Extremities Exam Extremities exam: Absent: calf tenderness, pedal edema, tenderness - Patient Status Disposition: Home, Self-Care Condition: Good Functional capacity at discharge: uses cane/walker Overall status at discharge: patient is progressing back to baseline - Discharge Instructions Follow Up With: Wesley Haas MD [Primary Care Provider] - 12/18/18 10:30 am - Diet and Activity Activity: increase activity as tolerated Diet: diabetic diet, low fat, low cholesterol, low salt diet
[2018-12-12 09:14] VITALS: BP 153/71
[2018-12-12] MEDS: *HR* Metformin 500 MG TABLET PO SCH (09:44)
[2018-12-12] MEDS: Furosemide 40 MG TABLET PO SCH (09:44)
[2018-12-12] MEDS: levoFLOXacin 500 MG TABLET PO SCH (09:45)
[2018-12-12] MEDS: Aspirin 81 MG TAB.CHEW PO SCH (09:45)
[2018-12-12] MEDS: Isosorbide MONOnitrate (24 HR) 30 MG TAB.ER.24H PO SCH (09:45)
[2018-12-12] MEDS: Ranolazine 500 MG TAB.ER.12H PO SCH (09:45)
[2018-12-12] MEDS: predniSONE 20 MG TABLET PO SCH (09:45)
== END 2018-12-12 10:00 | disposition home or self-care (01) | DRG 945 ==
LOC: INPGRE 13:32
PROVIDERS: ADMIT Family Medicine; ATTEND Family Medicine